=== PATIENT | male | born 1965 | race Caucasian/White ===

== ENCOUNTER → 2025-03-20 | Day surgery (SDC) | payer MEDICARE, SELFPAY ==
[2025-03-20 09:15] VITALS: BP 145/94; PULSE 69; RESP 18; TEMP 36.2; O2SAT 99
[2025-03-20] MEDS: Lidocaine Jelly 2% 20 ML Syringe (URO-JET) 1 APPLIC (09:20)
== END | disposition home or self-care (01) ==
LOC: EN 09:06
PROVIDERS: PCP Student in an Organized Health Care Education/Training Program; Referring Provider Student in an Organized Health Care Education/Training Program; Visit Provider Internal Medicine Gastroenterology
PROC: F00ZJWZ Instrumental Swallowing and Oral Function Assessment using Swallowing Equipment (ICD-10-PCS; CPT 43235; principal; 2025-03-20 08:55)
DX: R13.10 Dysphagia, unspecified (principal)
CPT/HCPCS: 91010